=== PATIENT | male | born 1960 | race Caucasian/White ===

== ENCOUNTER 2024-03-14 15:31 | Emergency (ER) | payer MEDICARE, OTHER ==
[2024-03-14 15:55] LABS: BASOPHILS PERCENT AUTO 0.5 % (0.0-1.0); EOSINOPHILS ABSOLUTE AUTO 0.1 K/mm3 (0.0-0.4); EOSINOPHILS PERCENT AUTO 1.5 % (0.0-6.0); HEMATOCRIT 41.9 % (42.0-52.0); HEMOGLOBIN 13.5 gm/dl (14.0-18.0); IMMATURE GRAN ABSOLUTE AUTO 0.06 K/mm3 (0.00-0.05); IMMATURE GRAN PERCENT AUTO 0.7 % (0.0-0.4); LYMPHOCYTES ABSOLUTE AUTO 1.7 K/mm3 (1.0-4.8); LYMPHOCYTES PERCENT AUTO 20.1 % (24.0-44.0); MEAN CORPUSCULAR HEMOGLOBIN 30.8 pg (28.0-32.0); MEAN CORPUSCULAR HGB CONC 32.2 g/dl (32.0-36.0); MEAN CORPUSCULAR VOLUME 95.7 fl (83.0-99.0); MEAN PLATELET VOLUME 9.3 fl (9.4-12.4); MONOCYTES ABSOLUTE AUTO 0.9 K/mm3 (0.0-0.8); NEUTROPHILS ABSOLUTE AUTO 5.7 K/mm3 (1.8-7.7); NEUTROPHILS PERCENT AUTO 67.2 % (41.0-71.0); PLATELET COUNT,PLT 191 K/mm3 (150-400); RED BLOOD CELL COUNT 4.38 M/mm3 (4.52-5.90); WHITE BLOOD CELL COUNT,WBC 8.52 K/mm3 (3.9-11.3)
[2024-03-14] MEDS: Sodium Chloride 0.9% 10 ML Syringe FLUSH ONE (16:10)
[2024-03-14] MEDS: Iopamidol 755 Mg/ML 100 ML Bottle IVPUSH ONE (16:10)
[2024-03-14] MEDS: fentaNYL 100 MCG/2 ML SDV IVPUSH ONE (16:16)
[2024-03-14] MEDS: ceFAZolin 2 GM in Sodium Chloride 0.9% 50 ML IV ONE (16:20)
[2024-03-14] MEDS: Lactated Ringers 1,000 ML IV ONE (16:20)
[2024-03-14] MEDS: Sodium Chloride 0.9% 10 ML Syringe FLUSH PRN (16:21)
[2024-03-14 16:42] LABS: A/G RATIO 1.2 (1-2); ALANINE AMINOTRANSFERASE,ALT 67 U/L (16-63); ALBUMIN 3.9 g/dl (3.4-5.0); ALKALINE PHOSPHATASE 83 U/L (46-116); ANION GAP 15.9 (5-15); ASPARTATE AMNIOTRANSFERASE,AST 60 U/L (15-37); BILIRUBIN TOTAL 0.8 mg/dL (0.2-1.0); BLOOD UREA NITROGEN,BUN 18 mg/dL (7-18); CALCIUM 8.7 mg/dL (8.5-10.1); CARBON DIOXIDE,CO2 20 mEq/L (21-32); CHLORIDE,CL 98 mEq/L (98-107); CREATINE KINASE,CK 180 U/L (39-308); CREATININE 0.9 mg/dL (0.7-1.3); ESTIMATED GFR 95 mL/min (>60); ETHANOL BLOOD MEDICAL 0.16 gm% (0.00); LIPASE 39 U/L (16-77); POTASSIUM,K 3.9 mEq/L (3.5-5.1); PROTEIN TOTAL,TP 7.2 g/dl (6.4-8.2); SODIUM,NA 130 mEq/L (136-145); TROPONIN I HIGH SENSITIVITY 11 pg/mL (<=76)
[2024-03-14 16:46] LABS: GLUCOSE RANDOM 101 mg/dL (70-99)
[2024-03-14] MEDS: Diphtheria,Pertussis(Acell),Tetanus Vaccine 0.5 ML Syringe IM ONE (17:13)
[2024-03-14] MEDS: HYDROmorphone 1 MG/ML Syringe IVPUSH ONE ×2 (17:22→19:30)
[2024-03-14 19:04] LABS: APPEARANCE,URINE CLEAR (Clear); BILIRUBIN,URINE NEGATIVE (Negative); COLOR,URINE YELLOW (Yellow); GLUCOSE,URINE NEGATIVE (Negative); KETONES,URINE NEGATIVE (Negative); LEUKOCYTE ESTERASE,URINE NEGATIVE (Negative); NITRITE,URINE NEGATIVE (Negative); OCCULT BLOOD,URINE NEGATIVE (Negative); PROTEIN,URINE NEGATIVE (Negative); UROBILINOGEN,URINE 0.2 (0.2-1.0)
[2024-03-14 19:17] LABS: BARBITURATE SCREEN,URINE NEGATIVE (CUTOFF=200); BENZODIAZEPINES SCREEN,URINE NEGATIVE (CUTOFF=150); BUPRENORPHINE SCREEN,URINE NEGATIVE (CUTOFF=10); METHADONE SCREEN, URINE NEGATIVE (CUT0FF=200); METHAMPHETAMINES SCREEN, URINE NEGATIVE (CUTOFF=500); OXYCODONE SCREEN,URINE NEGATIVE (CUT0FF=100); THC SCREEN,URINE 20 NG/ML NEGATIVE (CUTOFF=50)
[2024-03-14 19:21] LABS: AMPHETAMINES SCREEN, URINE NEGATIVE (CUTOFF=500)
== END 2024-03-14 19:45 ==
LOC: JD.ED 15:31
DX: S22.42XA Multiple fractures of ribs, left side, initial encounter for closed fracture (principal); S62.623B Displaced fracture of middle phalanx of left middle finger, initial encounter for open fracture; S62.615B Displaced fracture of proximal phalanx of left ring finger, initial encounter for open fracture; S27.321A Contusion of lung, unilateral, initial encounter; S00.12XA Contusion of left eyelid and periocular area, initial encounter; I77.72 Dissection of iliac artery; E87.1 Hypo-osmolality and hyponatremia; R93.89 Abnormal findings on diagnostic imaging of other specified body structures; I10 Essential (primary) hypertension; Z79.899 Other long term (current) drug therapy; V87.8XXA Person injured in other specified noncollision transport accidents involving motor vehicle (traffic), initial encounter; Y92.410 Unspecified street and highway as the place of occurrence of the external cause
CPT/HCPCS: 36415; 70450; 70486; 71045; 71260; 72125; 72170; 73120; 74177; 80053; 80306; 80307; 81003; 82550; 83690; 83735; 84484; 85025; 86850; 86900; 86901; 90471; 90715; 93005; 96361; 96365; 96375; 96376; 99285; J0690; J1170; J3010; J3490; J7120; Q9967; 93010

== ENCOUNTER 2025-05-18 08:10 | Day surgery (SDC) | payer MEDICARE ==
[~2025-05-18 08:10] MED LIST: Sodium Chloride 0.9% 10 ML Syringe FLUSH PRN; Sodium Chloride 0.9% 10 ML Syringe FLUSH SCH
[2025-05-18] MEDS: Lactated Ringers 1,000 ML IV SCH (08:15)
[2025-05-18] MEDS ORDERED: propofoL 500 MG/50 ML 50 ML ONE (08:20)
[2025-05-18] MEDS ORDERED: fentaNYL 100 MCG/2 ML SDV ONE (08:20)
[2025-05-18] MEDS ORDERED: Midazolam 1 MG/ML 2 ML SDV ONE (08:20)
[2025-05-18] MEDS ORDERED: dexmedeTOMIDine HCl 200 MCG/2 ML SDV ONE (08:57)
[2025-05-18] MEDS ORDERED: Propofol 200 MG/20 ML SDV ONE ×2 (11:15→12:04)
== END 2025-05-18 13:50 ==
LOC: JD.SDS 08:10
PROVIDERS: ATTEND Podiatrist Foot & Ankle Surgery
DX: M20.12 Hallux valgus (acquired), left foot (principal); M19.072 Primary osteoarthritis, left ankle and foot; L97.529 Non-pressure chronic ulcer of other part of left foot with unspecified severity; Z79.899 Other long term (current) drug therapy
CPT/HCPCS: 28112; 28750; 76000; 88304; 88311; A9270; C1713; J0665; J0690; J2003; J2250; J2704; J3010; J7120